=== PATIENT | male | born 1935 | race Caucasian/White ===

== ENCOUNTER 2019-06-18 00:29 | Inpatient (IN) | payer MEDICARE, OTHER ==
[2019-06-18] VITALS (85 sets, daily range): BP systolic 76–145; BP diastolic 30–116
[~2019-06-18] VITALS: Ht 160 cm; Wt 75.0 kg
[2019-06-18] MEDS ORDERED: DOPamine 1600MCG/ML D5W 250 ML IV SCH (00:47)
[2019-06-18] MEDS ORDERED: ENOXAPARIN SOD 30 MG/0.3 ML SYRINGE IV ONE (01:00)
[2019-06-18] MEDS ORDERED: ENOXAPARIN SOD 30 MG/0.3 ML SYRINGE SC ONE (01:00)
[2019-06-18] MEDS ORDERED: SODIUM CHLORIDE 0.9% 500 ML IV ONE (01:00)
[2019-06-18] MEDS ORDERED: ASPirin 325 MG TAB PO ONE (01:00)
[2019-06-18] MEDS ORDERED: ATROPINE SULF 1 MG/10ml SYR ONE (01:04)
[2019-06-18] MEDS ORDERED: SODIUM CHL 0.9% 50 ML ONE (01:05)
[2019-06-18] MEDS ORDERED: IOHEXOL 350 MG/ML 100ML IJ ONE (01:05)
[2019-06-18] MEDS ORDERED: fentaNYL CITRATE 100 MCG/2 ML VL ONE (01:05)
[2019-06-18] MEDS ORDERED: MIDAZOLAM HCL 1MG/1ML-2 ML VIAL ONE ×2 (01:05→01:58)
[2019-06-18] MEDS ORDERED: ANGIOMAX 250 MG VIAL IV ONE (01:05)
[2019-06-18] MEDS ORDERED: LIDOCAINE 2%HCL (LOCAL ANESTH.) INJ 20ML MDV ONE (01:05)
[2019-06-18 01:17] LABS: Basophils # (auto) 0.1 uL; Basophils % (auto) 0.9 % (0.0-2.0); Eosinophils # (auto) 0.1 uL; Eosinophils % (auto) 1.7 % (0.0-7.0); Hematocrit 35.8 % (41.0-53.0); Hemoglobin 12.1 g/dL (13.5-17.5); Lymphocytes # (auto) 3.1 uL; Lymphocytes % (auto) 38.9 % (10.0-50.0); Mean Corpuscular Hemoglobin 32.2 pg (28.0-32.0); Mean Corpuscular Hgb Conc. 33.8 g/dL (32.0-36.0); Mean Corpuscular Volume 95.2 fL (80.0-100.0); Monocytes # (auto) 0.3 uL; Monocytes % (auto) 3.6 % (0.0-12.0); Neutrophils # (auto) 4.4 uL; Neutrophils % (auto) 54.9 % (37.0-80.0); Nucleated Red Blood Cells % 0.1 %; Platelet Count (auto) 76 10^3/uL (140-450); Red Blood Cells 3.76 10^6/uL (4.5-5.90); Red Cell Distribution Width 14.1 % (11.8-14.3); White Blood Cell 7.9 10^3/uL (4.4-10.8)
[2019-06-18 01:31] LABS: INR 1.19 (0.9-1.15); Partial Thromboplastin Time 58.9 sec (23.64-32.05)
[2019-06-18 01:33] LABS: Albumin 3.1 g/dL (3.4-5.0); BUN/Creatinine Ratio 9.1; Calcium 7.9 mg/dL (8.5-10.1); Magnesium 2.8 mg/dL (1.6-2.6); Potassium 3.7 mmol/L (3.5-5.1)
[2019-06-18 01:38] LABS: Bilirubin, Total 0.3 mg/dL (0.2-1.0); Total Protein 5.7 g/dL (6.4-8.2)
[2019-06-18] MEDS ORDERED: MORPHINE SULF INJ 2 MG/ML SYRINGE 1ML IV PRN ×2 (01:45→02:30)
[2019-06-18] MEDS ORDERED: NITROGLYCERIN 0.4 MG SL TAB SL PRN ×2 (01:45→02:30)
[2019-06-18] MEDS ORDERED: TICAGRELOR 90 MG TAB ONE (02:15)
--- NOTE | 2019-06-18 02:35 | NUR ---
Arrival Note ICU pt S/P Cardiac Cath on Ventilator S/P CPR Received pt on mechanical ventilator, following Cardiac catheterization, on emergency operator and portable oxygen. Patient transferred to ICU bed, connected to ICU monitoring and oxygen. Catheter remains in right groin. Site assessed for any bleeding, redness or swelling. Site benign, Pedal pulses on affected leg assessed for positive tissue perfusion. Pt does not respond or open eyes to any stimuli. Full assessment done see interventions. OGT clamped and placement verified. Right 18g peripheral IV to the right FA. 20g peripheral IV to the left FA infusing dopamine/NS. IO to the right lower extremity in place. Left knee abrasion and left upper abrasion on the nose noted. Pictures taken. Pt bleeding from the mouth, no secretions suctioned from ET tube. Travis catheter in place draining bright blood tinged urine. Pt temperature 94.2 degrees. Started warming measures and placed mino hugger on patient. Will continue to monitor pt.
--- NOTE | 2019-06-18 02:50 | NUR ---
FAMILY AT BEDSIDE. ALL QUESTIONS AND CONCERNS ADDRESSED AT THIS TIME.
[2019-06-18] MEDS: MIDAZOLAM DRIP 50 mg/50mL 50 ML IV SCH ×3 (03:00→16:19)
[2019-06-18] MEDS ORDERED: ACETAMINOPHEN 325 MG TAB PO PRN (03:15)
[2019-06-18] MEDS ORDERED: ONDANSETRON HCL 4 MG/2 ML VIAL IV PRN (03:15)
--- NOTE | 2019-06-18 03:40 | NUR ---
PT TAKEN TO CT
[2019-06-18 03:41] LABS: Basophils # (auto) 0 uL; Basophils % (auto) 0.1 % (0.0-2.0); Eosinophils # (auto) 0.1 uL; Eosinophils % (auto) 0.3 % (0.0-7.0); Hematocrit 40.7 % (41.0-53.0); Hemoglobin 13.8 g/dL (13.5-17.5); Lymphocytes # (auto) 1.4 uL; Lymphocytes % (auto) 6.3 % (10.0-50.0); Mean Corpuscular Hemoglobin 32.1 pg (28.0-32.0); Mean Corpuscular Volume 94.5 fL (80.0-100.0); Monocytes # (auto) 0.5 uL; Monocytes % (auto) 2.3 % (0.0-12.0); Nucleated Red Blood Cells % 0.1 %; Platelet Count (auto) 141 10^3/uL (140-450)
--- NOTE | 2019-06-18 04:10 | NUR ---
PT BACK FROM CT
[2019-06-18] MEDS: SODIUM CHLOR 0.9% PF (SALINE LOCK) 10ML VIAL/SYR IV SCH ×3 (06:00→22:06)
--- NOTE | 2019-06-18 07:15 | NUR ---
REPORT RECEIVED FROM HEALTH INFORMATION ASSISTANT NURSE. PATIENT RESTING IN BED AT THIS TIME, INTUBATED AND SEDATED. RESPIRATIONS EVEN BUT LABORED. PATIENT HAS INCREASED RR 30'S INCREASED SEDATION PER PROTOCOL. BED IN LOW POSITION WILL CONTINUE TO MONITOR.
--- NOTE | 2019-06-18 07:30 | NUR ---
END OF SHIFT NOTE REPORT GIVEN TO DAY SHIFT RN TO ASSUME CARE.
--- NOTE | 2019-06-18 07:46 | NUR ---
SPOKE TO DR TIDWELL ABOUT NEW CONSULT. REVIEWED LAB AND H&P WITH MD WELL ABG RESULTS. PER MD INCREASED RR TO 22 AND ADMINISTERE 2 AMPS SODIUM BICARB IVP. REPEAT ABG IN 1 HOUR. ORDERS PLACED AND INFORMED RESPIRATORY THERAPIST.
[2019-06-18] MEDS ORDERED: SODIUM BICARBONATE 8.4 % INJ 50ML VIAL IV ONE (08:00)
[2019-06-18] MEDS: fentaNYL Drip 2500mCg/250mlNS 250 ML IV SCH (08:11)
--- NOTE | 2019-06-18 08:16 | NUR ---
Respiratory note: INCREASED RR TO [address] TIDWELL, DRAW ABG IN ONE HOUR. VENTILATOR SETTINGS ARE NOW: AC 22/500/+5 WILL CONTINUE TO MONITOR PATIENT.
--- NOTE | 2019-06-18 09:14 | NUR ---
SPOKE TO ABOUT CENTRAL LINE PLACEMENT CONSENTS SIGNED.
--- NOTE | 2019-06-18 09:35 | NUR ---
PER DR JOSÉ MIGUEL TREJO TO PLACE CENTRAL LINE. WILL PAGE DR CALDERON TO PLACE CENTRAL LINE.
--- NOTE | 2019-06-18 09:50 | NUR ---
Respiratory note: TITRATED PATIENT FI02 DOWN TO 50%. SPO2 IS MAINTAINING ABOVE 92%.
--- NOTE | 2019-06-18 09:50 | NUR ---
DR CALDERON AT BEDSIDE TO PLACE CENTRAL LINE. PATIENT TOLERATED WELL.
[2019-06-18] MEDS: ASPirin 81 mg TAB PO SCH (10:00)
[2019-06-18] MEDS: METOPROLOL SUCCINATE XL 50 MG TAB PO SCH (10:00)
--- NOTE | 2019-06-18 10:15 | NUR ---
TIRE DESIGN ENGINEER AT BEDSIDE.
--- NOTE | 2019-06-18 10:20 | NUR ---
PLACED FLEXY SEAL DUE TO PATIENTS DIARRHEA. DR VALDEZ AWARE. PATIENT TOLERATED WELL.
[2019-06-18] MEDS: PANTOPRAZOLE 40 MG/10 ML VIAL INJ IV SCH (11:10)
--- NOTE | 2019-06-18 12:43 | NUR ---
DR TIDWELL AT BEDSIDE TO ASSESS PATIENT AND DISCUSS PLAN OF CARE WITH FAMILY. MD INCREASED PEEP TO 8. INFORMED RESPIRATORY THERAPIST. ALL ORDERS PLACED IN CHART.
--- NOTE | 2019-06-18 12:50 | NUR ---
Respiratory note: DR. TIDWELL INCREASED THE PEEP ON THE VENTILATOR TO PEEP +8. PATIENT IS TOLERATING CHANGE WELL. VENT SETTINGS ARE NOW: AC 22/500/+8/50%. WILL CONTINUE TO MONITOR THE PATIENT.
[2019-06-18] MEDS ORDERED: CEFEPIME 1 GM in SODIUM CHL 0.9% 50 ML IV ONE (13:00)
--- NOTE | 2019-06-18 13:00 | NUR ---
TEMP APPLIED ICE PACKS AND TYLENOL AT ORDERED. PATIENTS TEMP 101.3 RECTAL. WILL CONTINUE TO MONITOR.
--- NOTE | 2019-06-18 13:55 | NUR ---
SPOKE TO DR TIDWELL TO INFORM OF LOW BLOOD PRESSURE. PER MD ADMINISTER LEVOPHED PER PROTOCOL. ALL ORDERS NOTED IN CHART.
[2019-06-18] MEDS: PHENYLEPHRINE INJ 20 MG in SODIUM CHL 0.9% 250 ML IV SCH ×2 (13:56→22:16)
[2019-06-18] MEDS ORDERED: CEFEPIME 0.5 GM in SODIUM CHL 0.9% 50 ML IV SCH ×2 (14:00→20:00)
--- NOTE | 2019-06-18 14:20 | NUR ---
PATIENT CONTINUES TO HAVE ELEVATED TEMP PLACED PATIENT ON COOLING BLANKET. WILL CONTINUE TO MONITOR.
[2019-06-18] MEDS: NOREPINEPHRINE 8 MG/250ML KIT 250 ML IV SCH (14:21)
[2019-06-18] MEDS: SODIUM CHLORIDE 0.9% 1,000 ML IV SCH (14:22)
[2019-06-18 15:21] LABS: INR 1.27 (0.9-1.15)
[2019-06-18 15:32] LABS: Lactic Acid w/Reflex 7.3 mmol/L (0.4-2.0)
--- NOTE | 2019-06-18 16:38 | NUR ---
DR VALDEZ AT BEDSIDE TO ASSESS PATIENT AND DISCUSS PLAN OF CARE WITH FAMILY. ALL ORDERS NOTED IN CHART. MD MADE AWARE OF PATIENT BLEEDING FROM FOFANA, ORALLY AND NGT COFFEE GROUND. PER MD ADMINISTER BRILINTA.
--- NOTE | 2019-06-18 17:30 | NUR ---
TOOK HOME PATIENTS LOWER DENTURES AND STATED THAT UPPER DENTURES WERE ALREADY AT HOME. SHE WAS ALSO SENT HOME WITH THE PATIENTS WEDDING RING THAT WAS A YELLOW GOLD WITH WHITE STONES.
[2019-06-18] MEDS: DOPamine 1600MCG/ML D5W 250 ML IV SCH ×2 (19:05→20:10)
--- NOTE | 2019-06-18 19:30 | NUR ---
Opening Shift Note Received pt on mechanical ventilator sedated on versed and fentanyl gtt. Right groin cardiac insertion site assessed for any bleeding, redness or swelling. Site benign, Pedal pulses on affected leg assessed for positive tissue perfusion. All pulses palpable. Pt does not respond or open eyes to any stimuli. Full assessment done see interventions. OGT connected to LIS, draining dark brown fluid. 20g peripheral IV to the left FA D/C'd . IO to the right lower extremity D/C'd. Right IJ TLC in place, all ports patent. See IV spreadsheet for details. Pt tolerated well. Left knee abrasion and left upper abrasion on the nose noted. Pt bleeding from the mouth, no secretions suctioned from ET tube. Travis catheter in place draining brown urine. Will continue to monitor pt.
--- NOTE | 2019-06-18 21:00 | NUR ---
TEMPERATURE PT TEMP 101.3 AT THIS TIME. COOLING MEASURES INITIATED.
[2019-06-18] MEDS ORDERED: ATORVASTATIN 20 MG TAB PO SCH (22:00)
[2019-06-18] MEDS ORDERED: CEFEPIME 1 GM in SODIUM CHL 0.9% 50 ML IV SCH ×4 (22:00)
--- NOTE | 2019-06-18 22:00 | NUR ---
PER JOSÉ MIGUEL BETTENCOURT TO GIVE BRILINTA IF PT SHOWS SIGNS OF BLEEDING. MED GIVEN. WILL MONITOR CLOSELY FOR ANY ACTIVE SIGNS OF BLEEDING.
[2019-06-18] MEDS: ATORVASTATIN 20 MG TAB PO SCH (22:06)
[2019-06-18] MEDS: TICAGRELOR 90 MG TAB GT SCH (22:06)
--- NOTE | 2019-06-18 23:42 | NUR ---
TEMP REASSESS TEMP 98.6. WILL CONTINUE TO MONITOR
[2019-06-19] VITALS (106 sets, daily range): BP systolic 94–128; BP diastolic 39–67
[2019-06-19 03:46] LABS: Basophils # (auto) 0 uL; Basophils % (auto) 0.2 % (0.0-2.0); Eosinophils # (auto) 0 uL; Hematocrit 38.8 % (41.0-53.0); Hemoglobin 13.7 g/dL (13.5-17.5); Lymphocytes # (auto) 0.9 uL; Lymphocytes % (auto) 3.2 % (10.0-50.0); Mean Corpuscular Hgb Conc. 35.3 g/dL (32.0-36.0); Mean Corpuscular Volume 90.6 fL (80.0-100.0); Monocytes # (auto) 1.9 uL; Monocytes % (auto) 6.9 % (0.0-12.0); Neutrophils # (auto) 24.7 uL; Neutrophils % (auto) 89.7 % (37.0-80.0); Platelet Count (auto) 148 10^3/uL (140-450); Red Blood Cells 4.29 10^6/uL (4.5-5.90); Red Cell Distribution Width 13.9 % (11.8-14.3); White Blood Cell 27.5 10^3/uL (4.4-10.8)
--- NOTE | 2019-06-19 04:00 | NUR ---
Patient bathe/linen change Patient given complete bath. Skin integrity assessed for any changes. Linens changed. Patient repositioned for comfort.
[2019-06-19 04:05] LABS: Albumin 2.8 g/dL (3.4-5.0); BUN/Creatinine Ratio 13.3; Calcium 7.3 mg/dL (8.5-10.1); Potassium 5.3 mmol/L (3.5-5.1)
[2019-06-19 04:07] LABS: Bilirubin, Total 0.5 mg/dL (0.2-1.0); Total Protein 5.9 g/dL (6.4-8.2)
[2019-06-19] MEDS: SODIUM CHLOR 0.9% PF (SALINE LOCK) 10ML VIAL/SYR IV SCH ×3 (06:00→22:28)
--- NOTE | 2019-06-19 06:10 | NUR ---
Respiratory note: RECEIVED PATIENT ON V12 V200 VENT ORALLY INTUBATED WITH AN 8.0 ETT SECURED VIA ALBERT AT THE 23CM MARKING AT THE LIP, AND MECHANICALLY VENTILATED WITH THE CHARTED SETTINGS. SPO2 97%, LUNG SOUNDS DIM T/O, NO SECRETIONS WHEN SUCTIONED. SKIN IS WARM/DRY TO THE TOUCH AND IS INTACT NEAR ALBERT SITE. THER IS AN OGT IN PLACE AND SECURED TO THE ETT, A TRIPLE LUMEN CENTRAL LINE IS PLACED IN THE RIGHT IJ, NO OTHER ADVANCED LINES PLACED. SLIGHT BRUISING ON BOTH FOREARMS, AND PITTING EDEMA NOTED ON BILATERAL LOWER EXTREMITIES. NO NEW AM CXR TO ASSESS,. PATIENT IS UNRESPONSIVE TO BOTH VERBAL/TACTILE STIMULI AND IS SEDATED ON VERSED AND FENTANYL DRIPS. HE IS RESTING COMFORTABLY AND TOLERATING VENT WELL, NO CHANGES MADE.
--- NOTE | 2019-06-19 06:33 | NUR ---
Respiratory note: FIO2 DECREASED TO 30% POST PO2 RESULTS FROM ABG. АЛЕКАСНДР FUNG MADE AWARE OF CHANGE.
--- NOTE | 2019-06-19 07:13 | NUR ---
REPORT GIVEN TO LINDSAY FOUNTAIN, TO ASSUME CARE
[2019-06-19] MEDS: MIDAZOLAM DRIP 50 mg/50mL 50 ML IV SCH ×3 (07:18→21:39)
--- NOTE | 2019-06-19 07:30 | NUR ---
OPEN Report received from Fany FOUNTAIN. Care initiated and initial assessment complete.
[2019-06-19] MEDS: SODIUM CHLORIDE 0.9% 1,000 ML IV SCH ×2 (07:39→21:57)
[2019-06-19] MEDS: PANTOPRAZOLE 40 MG/10 ML VIAL INJ IV SCH ×2 (10:00→11:00)
[2019-06-19] MEDS: TICAGRELOR 90 MG TAB GT SCH ×3 (10:00→22:30)
[2019-06-19] MEDS ORDERED: ASPirin 81 mg TAB PO SCH (10:00)
--- NOTE | 2019-06-19 10:00 | NUR ---
BEDSIDE Dr. Castaneda bedside. New orders received.
[2019-06-19] MEDS: ASPirin 81 mg TAB PO SCH (10:25)
[2019-06-19] MEDS: METOPROLOL SUCCINATE XL 50 MG TAB PO SCH (10:26)
[2019-06-19] MEDS: CEFEPIME 0.5 GM in SODIUM CHL 0.9% 50 ML IV SCH (11:00)
--- NOTE | 2019-06-19 12:00 | NUR ---
FAMILY BEDSIDE , Gladis, at the bedside. Updated on patients status and condition.
[2019-06-19] MEDS ORDERED: DEXTROSE (50%) 50ML SYRG IV PRN (13:15)
--- NOTE | 2019-06-19 13:20 | NUR ---
WOUND CARE BEDSIDE Wound care nurse assessing patient.
--- NOTE | 2019-06-19 13:30 | NUR ---
WOUND CARE NOTE: IN TO SEE PATIENT AT THIS TIME FOR SKIN INTEGRITY MONITORING. PATIENT WAS ADMITTED TO [facility] WITH DIAGNOSIS OF STEMI. CURRENT YUKI SCORE IS 12. PATIENT IS INTUBATED, SEDATED. PATIENT TURNED, SKIN ASSESSED. SKIN IS INTACT, NO OPEN OR DRAINING AREAS NOTED. BONY PROMINENCES ARE PINK, BLANCHABLE. APPLIED PREVENTATIVE OPTIFOAM GENTLE SACRAL DRESSING TO UPPER MEDIAL SACRUM AT THIS TIME. FAMILY AT BEDSIDE EDUCATED IN WOUND CARE AND PRESSURE REDISTRIBUTION. FAMILY VERBALIZED UNDERSTANDING. SKIN/WOUND CARE PLAN IMPLEMENTED. RECOMMEND: FREQUENT TURN SCHEDULE Q 2 HOURS, PRN CONDITION PERMITS, WITH PRESSURE REDISTRIBUTION USING PILLOWS/WEDGES, BID/PRN APPLICATION WITH MOISTURE BARRIER CREAM, OPTIFOAM GENTLE SACRAL DRESSING, SKIN/WOUND CARE PLAN, DIETARY CONSULT, CONTINUED MONITORING BY WOUND CARE TEAM.
--- NOTE | 2019-06-19 15:00 | NUR ---
FAMILY BEDSIDE , Gladis, at the bedside.
[2019-06-19] MEDS: DOPamine 1600MCG/ML D5W 250 ML IV SCH (17:12)
[2019-06-19] MEDS: fentaNYL Drip 2500mCg/250mlNS 250 ML IV SCH ×2 (17:14→22:00)
[2019-06-19] MEDS: NOREPINEPHRINE 8 MG/250ML KIT 250 ML IV SCH ×2 (17:14→17:17)
[2019-06-19] MEDS: ACCU-CHEK COMFORT CURVE STRIP VI SCH ×2 (17:50→23:45)
[2019-06-19] MEDS: InsuLIN REG 1unit/0.01ml Soln (100units/ml) SC SCH ×2 (17:54→23:59)
--- NOTE | 2019-06-19 19:35 | NUR ---
INITIAL CONTACT ASSUMED CARE OF PATIENT PATIENT APPEARS TO BE RESTING IN BED COMFORTABLY IN SEMI-FOWLERS POSITION, PATIENT IS INTUBATED AND SEDATED ON VERSED AND FENTANYL. SEE IV SPREADSHEET FOR MEDICATIONS AND TITRATION. NO FACIAL GRIMACE NOTED. NO MOVEMENT WITH STIMULATION. NOTED FOFANA CATHETER IN TACT AND DRAINING TO GRAVITY. TRIPLE LUMEN CATHETER INTACT WITH NO S/S OF PHLEBITIS OR INFILTRATION. VENTILATOR PLUGGED INTO RED OUTLET PER VAP PROTOCOL. AMBU BAG AT BEDSIDE. BED IN LOWEST LOCKED POSITION, SIDE RAILS UP TIMES TWO, PATIENT IS IN FULL VIEW OF NURSES STATION. SAFETY MAINTAINED, WILL CONTINUE TO MONITOR.
[2019-06-19] MEDS: SODIUM ZIRCONIUM CYCL 10 GM PAK PO ONE (19:45)
[2019-06-19] MEDS: ATORVASTATIN 20 MG TAB PO SCH (22:28)
[2019-06-20] VITALS (103 sets, daily range): BP systolic 69–133; BP diastolic 41–70
[2019-06-20] MEDS: MIDAZOLAM DRIP 50 mg/50mL 50 ML IV SCH ×2 (01:16→06:03)
--- NOTE | 2019-06-20 04:00 | NUR ---
Patient bathe/linen change Patient given complete bath. Skin integrity assessed for any changes. Linens changed. Patient repositioned for comfort. Mouth care given, tubing changed, Gown change, suction as necessary. Patient tolerated well.
[2019-06-20] MEDS: SODIUM ZIRCONIUM CYCL 10 GM PAK PO ONE (05:05)
[2019-06-20] MEDS ORDERED: DOBUTamine 1000MCG/ML 0 ML IV ONE (05:09)
[2019-06-20 05:13] LABS: Basophils # (auto) 0 uL; Basophils % (auto) 0.2 % (0.0-2.0); Eosinophils # (auto) 0 uL; Eosinophils % (auto) 0.3 % (0.0-7.0); Hematocrit 31.8 % (41.0-53.0); Lymphocytes # (auto) 0.8 uL; Lymphocytes % (auto) 5.3 % (10.0-50.0); Mean Corpuscular Hemoglobin 32.2 pg (28.0-32.0); Mean Corpuscular Hgb Conc. 34.5 g/dL (32.0-36.0); Mean Corpuscular Volume 93.3 fL (80.0-100.0); Monocytes # (auto) 0.9 uL; Monocytes % (auto) 5.9 % (0.0-12.0); Neutrophils # (auto) 13.3 uL; Neutrophils % (auto) 88.3 % (37.0-80.0); Platelet Count (auto) 115 10^3/uL (140-450); Red Blood Cells 3.41 10^6/uL (4.5-5.90); Red Cell Distribution Width 14.2 % (11.8-14.3)
[2019-06-20 05:26] LABS: BUN/Creatinine Ratio 18.8; Calcium 7.1 mg/dL (8.5-10.1); Potassium 3.9 mmol/L (3.5-5.1)
[2019-06-20] MEDS: InsuLIN REG 1unit/0.01ml Soln (100units/ml) SC SCH ×3 (06:01→18:00)
[2019-06-20] MEDS: SODIUM CHLOR 0.9% PF (SALINE LOCK) 10ML VIAL/SYR IV SCH ×3 (06:01→22:11)
[2019-06-20] MEDS: ACCU-CHEK COMFORT CURVE STRIP VI SCH ×3 (06:02→18:19)
[2019-06-20] MEDS: fentaNYL Drip 2500mCg/250mlNS 250 ML IV SCH (06:02)
[2019-06-20] MEDS: DOPamine 1600MCG/ML D5W 250 ML IV SCH (06:06)
--- NOTE | 2019-06-20 07:30 | NUR ---
OPENING NOTE Report received from Adenike FOUNTAIN, care assumed. Patient is intubated on ventilator, tolerating well at this time. Physical assessment performed. Patient under sedation of Fentanyl and Versed. Afebrile. Pulses palpable bilaterally. Vitals stable on Levophed and Dopamine gtt. Flexiseal and Travis catheter patent and present. See skin assessment. Bed locked in lowest position, alarms in place. Will continue to monitor.
[2019-06-20] MEDS: PHENYLEPHRINE INJ 20 MG in SODIUM CHL 0.9% 250 ML IV SCH ×2 (07:36→14:14)
[2019-06-20] MEDS: CEFEPIME 0.5 GM in SODIUM CHL 0.9% 50 ML IV SCH (09:34)
[2019-06-20] MEDS: ASPirin 81 mg TAB PO SCH (09:34)
[2019-06-20] MEDS: PANTOPRAZOLE 40 MG/10 ML VIAL INJ IV SCH (09:34)
[2019-06-20] MEDS: METOPROLOL SUCCINATE XL 50 MG TAB PO SCH (09:35)
[2019-06-20] MEDS: TICAGRELOR 90 MG TAB GT SCH ×2 (09:46→22:11)
--- NOTE | 2019-06-20 09:50 | NUR ---
MD VISIT at beside rounding on patient. MD reviewing chart. MD wishes to titrate off sedation and attempt cpap trial once cardiology and nephrology clears patient.
--- NOTE | 2019-06-20 11:00 | NUR ---
Family updated on pt status Family of GREGG LOPEZ updated on patient's status and condition. All questions and concerns addressed. Linnette verbalized understanding.
--- NOTE | 2019-06-20 11:32 | NUR ---
NUTRITION CONSULT/ASSESSMENT NOTES Please refer to link notes of nutrition screen form filed under the intervention section of the plan of care for further details. Est. Needs: 1500 kcal to 1850 kcal (20-25 kcal/kgBW), 59 gms to 74 gms pro (0.8-1.0 gms/kgBW). Will continue to monitor pertinent labs and reassess nutrient need prn Thank you for this consult. Addendum: 06/20/19 at [address] Amended: Links added.
[2019-06-20] MEDS: SODIUM CHLORIDE 0.9% 1,000 ML IV SCH ×2 (12:15→20:00)
--- NOTE | 2019-06-20 12:21 | NUR ---
MD VISIT at bedside. MD notified of labs, urine output, and current gtts. No new orders received. MD prefers to titrate off levophed gtt before dopamine.
--- NOTE | 2019-06-20 12:55 | NUR ---
NEPHROLOGY CONSULT Paged and notified him of consult placed. MD will round on patient this afternoon.
--- NOTE | 2019-06-20 14:00 | NUR ---
TEMPERATURE 99.7 rectal temp, cooling measures initiated. Will continue to monitor.
--- NOTE | 2019-06-20 14:33 | NUR ---
MD VISIT at bedside assessing patient. MD reviewing chart. Orders placed.
[2019-06-20] MEDS ORDERED: BUMETANIDE 1mg/4ml VIAL (0.25mg/ml) IV ONE (14:45)
--- NOTE | 2019-06-20 14:46 | NUR ---
MD VISIT at bedside speaking with family regarding plan of care. MD answering all questions and concerns Addendum: 06/20/19 at 1447 by Honey Cruz RN WRONG PATIENT
[2019-06-20 15:31] LABS: Creatinine, Urine 128 mg/dL (30.0-125.0); Sodium Urine 12 mmol/L (40-220)
--- NOTE | 2019-06-20 16:44 | NUR ---
IV CENTRAL LINE DRESSING CHANGE PERFORMED WITH STERILE TECHNIQUE.
--- NOTE | 2019-06-20 17:39 | NUR ---
CARES Complete linen change performed. Skin intact, new stacia pad placed. Patient tolerated activity well. No distress noted, vitals stable. at bedside. All extremities off loaded on pillows. Will continue to monitor.
[2019-06-20] MEDS: CALCIUM ACETATE 667 MG CAP NG SCH (18:24)
--- NOTE | 2019-06-20 19:28 | NUR ---
REPORT Report given to Fany FOUNTAIN, care endorsed.
--- NOTE | 2019-06-20 19:30 | NUR ---
OPEN Report received from day shift RN. Care initiated and initial assessment complete. VSS at this time. Bed locked in lowest position. All alarms on and audible. Pt in full view of RN.
--- NOTE | 2019-06-20 22:00 | NUR ---
LEVOPHED GTT RESTARTED AT THIS TIME. B/P 79/42 WILL CONTINUE TO MONITOR AND TITRATE GTT TO SUSTAIN GOOD HEMODYNAMICS
[2019-06-20] MEDS: ATORVASTATIN 20 MG TAB PO SCH (22:11)
[2019-06-21] VITALS (103 sets, daily range): BP systolic 97–166; BP diastolic 47–83
[2019-06-21] MEDS: PHENYLEPHRINE INJ 20 MG in SODIUM CHL 0.9% 250 ML IV SCH ×3 (00:16→16:56)
[2019-06-21] MEDS: DOPamine 1600MCG/ML D5W 250 ML IV SCH ×2 (01:00→13:56)
[2019-06-21 04:32] LABS: Basophils # (auto) 0 uL; Basophils % (auto) 0.4 % (0.0-2.0); Eosinophils # (auto) 0.1 uL; Eosinophils % (auto) 0.6 % (0.0-7.0); Hematocrit 28.5 % (41.0-53.0); Hemoglobin 9.9 g/dL (13.5-17.5); Lymphocytes # (auto) 0.6 uL; Lymphocytes % (auto) 5.2 % (10.0-50.0); Mean Corpuscular Hgb Conc. 34.9 g/dL (32.0-36.0); Mean Corpuscular Volume 91.8 fL (80.0-100.0); Monocytes # (auto) 0.7 uL; Monocytes % (auto) 6.1 % (0.0-12.0); Neutrophils # (auto) 10.1 uL; Neutrophils % (auto) 87.7 % (37.0-80.0); Platelet Count (auto) 94 10^3/uL (140-450); White Blood Cell 11.5 10^3/uL (4.4-10.8)
[2019-06-21 04:57] LABS: Potassium 3.4 mmol/L (3.5-5.1)
[2019-06-21 05:05] LABS: Albumin 2.2 g/dL (3.4-5.0); BUN/Creatinine Ratio 21.7; Bilirubin, Total 0.7 mg/dL (0.2-1.0); Calcium 6.8 mg/dL (8.5-10.1); Total Protein 4.9 g/dL (6.4-8.2)
[2019-06-21] MEDS: fentaNYL Drip 2500mCg/250mlNS 250 ML IV SCH (05:57)
[2019-06-21] MEDS: InsuLIN REG 1unit/0.01ml Soln (100units/ml) SC SCH ×4 (05:58→17:33)
[2019-06-21] MEDS: SODIUM CHLOR 0.9% PF (SALINE LOCK) 10ML VIAL/SYR IV SCH ×3 (06:00→22:00)
[2019-06-21] MEDS: ACCU-CHEK COMFORT CURVE STRIP VI SCH ×4 (06:00→17:33)
--- NOTE | 2019-06-21 06:23 | NUR ---
Respiratory note: RECEIVED PATIENT ON V12 V200 VENT ORALLY INTUBATED WITH AN 8.0 ETT SECURED VIA ALEBRT AT THE 23CM MARKING AT THE LIP, AND MECHANICALLY VENTILATED WITH THE ABOVE CHARTED SETTINGS. SPO2 98%, LUNG SOUNDS DIM T/O, NO SECRETIONS WHEN SUCTIONED. SKIN IS WARM/DRY TO THE TOUCH AND IS INTACT NEAR ALBERT SITE. THERE IS AN OGT IN PLACE AND SECURED TO THE ETT, A TRIPLE LUMEN CENTRAL LINE IS PLACED IN THE RIGHT IJ, NO OTHER ADVANCED LINES PLACED. BRUISING NOTED ON BOTH FOREARMS, AND PITTING EDEMA NOTED ON BILATERAL LOWER EXTREMITIES. LEG SEQUENTIALS ARE IN PLACE AND OPERATIONAL. NO NEW AM CXR TO ASSESS,. PATIENT IS UNRESPONSIVE TO BOTH VERBAL/TACTILE STIMULI AND IS SEDATED ON FENTANYL DRIP. HE IS RESTING COMFORTABLY AND TOLERATING VENT WELL, NO CHANGES MADE. VENT PLUGGED INTO RED OUTLET AND ALL ALARMS ARE SET AND AUDIBLE. WILL CONTINUE TO ASSESS PATIENT WELL VENTILATOR FUNCTION.
--- NOTE | 2019-06-21 07:35 | NUR ---
END OF SHIFT NOTE REPORT GIVEN AND CARE ENDORSED TO FIRTZ FOUNTAIN.
[2019-06-21] MEDS: CALCIUM ACETATE 667 MG CAP NG SCH ×3 (08:00→17:33)
[2019-06-21] MEDS: SODIUM CHLORIDE 0.9% 1,000 ML IV SCH (08:27)
[2019-06-21] MEDS: TICAGRELOR 90 MG TAB GT SCH ×2 (10:00→22:39)
[2019-06-21] MEDS: CEFEPIME 0.5 GM in SODIUM CHL 0.9% 50 ML IV SCH (10:00)
[2019-06-21] MEDS: METOPROLOL SUCCINATE XL 50 MG TAB PO SCH (10:00)
--- NOTE | 2019-06-21 10:00 | NUR ---
DR. MYERS HERE TO SEE PATIENT. SEE MD NOTES AND EMR FOR ANY NEW ORDERS.
[2019-06-21] MEDS ORDERED: POTASSIUM EFFERVESENT TAB 25 MEQ ONE (10:21)
[2019-06-21] MEDS: PANTOPRAZOLE 40 MG/10 ML VIAL INJ IV SCH (10:24)
[2019-06-21] MEDS: BUMETANIDE 1mg/4ml VIAL (0.25mg/ml) IV SCH (10:25)
[2019-06-21] MEDS: ASPirin 81 mg TAB PO SCH (10:25)
[2019-06-21] MEDS ORDERED: POTASSIUM EFFERVESENT TAB 25 MEQ NG ONE (10:30)
--- NOTE | 2019-06-21 11:30 | NUR ---
DR. SOTO HERE TO SEE PATIENT. SEE MD NOTES AND EMR FOR ANY NEW ORDERS.
--- NOTE | 2019-06-21 11:40 | NUR ---
Respiratory note: PEEP DECREASED TO 7 AT THIS TIME PER DR[address] MCCALL'S BEDSIDE ORDER. АЛЕКСАНДР HU MADE AWARE OF CHANGE.
[2019-06-21] MEDS: NOREPINEPHRINE 8 MG/250ML KIT 250 ML IV SCH (13:06)
--- NOTE | 2019-06-21 14:20 | NUR ---
DR. VALDEZ HERE TO SEE PATIENT. SEE MD NOTES AND EMR FOR ANY NEW ORDERS.
--- NOTE | 2019-06-21 16:46 | NUR ---
Assessment Pt is an 83 yr old male who was on a vent. Pts , Linnette, was in the room and able to answer questions. Linnette is pts emergency contact and can be reached at [phone] or [phone]. Prior to admit, pt lived alone with his . Pt was ambulatory and independent with ADLs. Pt would assist his with cooking and cleaning. Linnette stated that the family has good social support through their yazidi and that they have been very helpful for her during this difficult time. Pt stated that her is showing big signs of dementia including memory loss and poor judgement. Pt has refused to see a doctor for 4 years despite wifes continuous prompts. Pts Primary is Dr. Thorpe. Pt does not have an AD on file, pts stated that they will create one once her husbands condition improves. SW will reassess for d/c plan closer to d/c Addendum: 06/21/19 at 1646 by NATHANIEL NEWMAN Amended: Links added.
--- NOTE | 2019-06-21 19:05 | NUR ---
open received report from day rn, assumed care of male pt. pt is intubated and connected to icu monitors at this time. vs are stable. pt has a RIJ triple lumen flushed and patent, no ss of redness or swelling at RIJ site, dressing is clean and dry.dopamine is running at 5mcg/kg/min and ns running at 70ml/hr. pt rr are equal and unlabored. pt does not respond to stimuli, pt has no gag or cough reflex.pt has a holly hanging below the bladder draining urine to gravity. pt also has a rectal prob in place to closely monitor pts core temp. pt has a Flexseal in place. pillows are in place to offload pressure of jesus prominences for safety and comfort. bed is in lowest locked position, hob 45*, pt is in full view of rn station, will continue to care for and monitor.
--- NOTE | 2019-06-21 21:36 | NUR ---
no ss of distress no ss of distress noted at this time, vs are stable, will continue to monitor and care for.
[2019-06-21] MEDS: ATORVASTATIN 20 MG TAB PO SCH (22:36)
[2019-06-21] MEDS ORDERED: FUROSEMIDE 20 MG/2 ML VIAL ONE (22:39)
--- NOTE | 2019-06-21 23:18 | NUR ---
no ss of distress no ss of distress noted at this time, vs are stable,pt tolerates care and prescribed medications, will continue to monitor and care for.
[2019-06-22] VITALS (63 sets, daily range): BP systolic 123–171; BP diastolic 50–97
--- NOTE | 2019-06-22 00:05 | NUR ---
bs insulin pt bs required insulin, amount given was determined by protocol, see documentation.
--- NOTE | 2019-06-22 01:15 | NUR ---
hygiene bed bath and lizandro change provided. pt tolerated care. vs are stable no ss of distress noted at this time.
[2019-06-22] MEDS: PHENYLEPHRINE INJ 20 MG in SODIUM CHL 0.9% 250 ML IV SCH ×3 (01:16→17:56)
--- NOTE | 2019-06-22 01:45 | NUR ---
suction canisters & tubing changed
[2019-06-22] MEDS: MIDAZOLAM DRIP 50 mg/50mL 50 ML IV SCH (02:50)
--- NOTE | 2019-06-22 03:00 | NUR ---
Optifoam applied optifoam changed and applied to sacrum as a preventive measure. Addendum: 06/22/19 at 0348 by ARNOLD CARTER RN RN skin is intact and blanches. optifoam placed on jesus prominence.
[2019-06-22 05:06] LABS: Potassium 3.6 mmol/L (3.5-5.1)
--- NOTE | 2019-06-22 05:10 | NUR ---
pt is stable pt is still intubated and vs stable, no ss of distress at this time. pt tolerates oral care and turns Q2. will continue to monitor.
[2019-06-22 05:11] LABS: Albumin 2.3 g/dL (3.4-5.0); BUN/Creatinine Ratio 24.9; Calcium 7.9 mg/dL (8.5-10.1)
[2019-06-22 05:13] LABS: Bilirubin, Total 1.1 mg/dL (0.2-1.0); Total Protein 6.1 g/dL (6.4-8.2)
[2019-06-22] MEDS: DOPamine 1600MCG/ML D5W 250 ML IV SCH ×2 (05:24→23:15)
[2019-06-22] MEDS: fentaNYL Drip 2500mCg/250mlNS 250 ML IV SCH (05:57)
[2019-06-22] MEDS: SODIUM CHLOR 0.9% PF (SALINE LOCK) 10ML VIAL/SYR IV SCH ×3 (06:00→22:00)
[2019-06-22] MEDS: ACCU-CHEK COMFORT CURVE STRIP VI SCH ×4 (06:00→18:00)
[2019-06-22] MEDS: InsuLIN REG 1unit/0.01ml Soln (100units/ml) SC SCH ×4 (06:00→18:00)
--- NOTE | 2019-06-22 06:12 | NUR ---
Respiratory note: RECEIVED PATIENT ON V12 V200 VENT ORALLY INTUBATED WITH AN 8.0 ETT SECURED VIA ALBERT AT THE 23CM MARKING AT THE LIP, AND MECHANICALLY VENTILATED WITH THE CHARTED SETTINGS. SPO2 99%, LUNG SOUNDS DIM T/O, NO SECRETIONS WHEN SUCTIONED. SKIN IS WARM/DRY TO THE TOUCH AND IS INTACT NEAR ALBERT SITE. THERE IS AN OGT IN PLACE AND SECURED TO THE ETT, A TRIPLE LUMEN CENTRAL LINE IS PLACED IN THE RIGHT IJ, NO OTHER ADVANCED LINES PLACED. BRUISING NOTED ON BOTH FOREARMS, AND PITTING EDEMA NOTED ON BILATERAL LOWER EXTREMITIES. LEG SEQUENTIALS ARE IN PLACE AND OPERATIONAL. NO NEW AM CXR TO ASSESS,. PATIENT IS UNRESPONSIVE TO BOTH VERBAL/TACTILE STIMULI AND IS SEDATED ON FENTANYL DRIP. HE IS RESTING COMFORTABLY AND TOLERATING VENT WELL, NO CHANGES MADE. VENT PLUGGED INTO RED OUTLET AND ALL ALARMS ARE SET AND AUDIBLE. WILL CONTINUE TO ASSESS PATIENT WELL VENTILATOR FUNCTION.
[2019-06-22] MEDS: CALCIUM ACETATE 667 MG CAP NG SCH ×3 (08:00→18:00)
--- NOTE | 2019-06-22 08:00 | NUR ---
Neuro No cough/gag reflex noted, no extremity withdrawal to pain noted. Pupils 2mm and appear fixed.
--- NOTE | 2019-06-22 08:45 | NUR ---
Patient's phones - updated on patient condition - requesting neurology consult.
--- NOTE | 2019-06-22 09:05 | NUR ---
Dr. Castaneda contacted re: need for neurology consult et CT - orders received.
--- NOTE | 2019-06-22 09:45 | NUR ---
visits et examines patient - orders received.
[2019-06-22] MEDS: ASPirin 81 mg TAB PO SCH (10:00)
--- NOTE | 2019-06-22 10:40 | NUR ---
visits et examines patient - no new orders received.
[2019-06-22] MEDS: PANTOPRAZOLE 40 MG/10 ML VIAL INJ IV SCH (10:50)
[2019-06-22] MEDS: BUMETANIDE 1mg/4ml VIAL (0.25mg/ml) IV SCH (10:50)
[2019-06-22] MEDS: METOPROLOL SUCCINATE XL 50 MG TAB PO SCH (10:51)
--- NOTE | 2019-06-22 11:01 | NUR ---
Patient's son at bedside - updated on new orders including pending EEG and CT Head - verbalized understanding.
[2019-06-22] MEDS: CEFEPIME 1 GM in SODIUM CHL 0.9% 50 ML IV SCH (11:04)
--- NOTE | 2019-06-22 11:36 | NUR ---
No sedation in place. Addendum: 06/22/19 at 1138 by Arlene Reynolds RN Amended: Links added.
--- NOTE | 2019-06-22 12:55 | NUR ---
ELECTROENCEPHALOGRAM COMPLETED AT BEDSIDE. RN DEVAUGHN NOTIFIED.
--- NOTE | 2019-06-22 13:29 | NUR ---
RT Transport Note: Patient transported to CT with АЛЕКСАНДР GALLEGOS. Patient transported to and from procedure on ventilator with previous ordered settings. Patient on media monitor with alarms set and audible, ambu-bag/mask connected to 02 tank. Patient returned to room with no adverse reaction noted. Transport completed without incident.
[2019-06-22] MEDS: NOREPINEPHRINE 8 MG/250ML KIT 250 ML IV SCH (13:56)
[2019-06-22] MEDS: TICAGRELOR 90 MG TAB GT SCH ×2 (14:05→23:13)
--- NOTE | 2019-06-22 14:40 | NUR ---
Called and spoke to Dr. Rader aware of results from CT head done earlier today with no new orders received.
--- NOTE | 2019-06-22 16:00 | NUR ---
Patient's family at bedside - questioning results of CT Head - commercial loan underwriter explained to them that results were abnormal and would be given by MD tomorrow - verbalized understanding.
--- NOTE | 2019-06-22 16:30 | NUR ---
Temp 99.9 rectally - ice packs applied to bilat groin and axilla et posterior neck. Fan placed on patient and room temp cooled - will monitor temp.
--- NOTE | 2019-06-22 17:00 | NUR ---
visits and examines patient - no new orders received.
--- NOTE | 2019-06-22 19:20 | NUR ---
open received report from day rn, assumed care of male pt. pt is intubated and connected to icu monitors at this time. vs are stable. no ss of distress noted at this time pt has a RIJ triple lumen flushed and patent, no ss of redness or swelling at RIJ site, dressing is clean and dry.dopamine is running at 5mcg/kg/min and ns running at 70ml/hr. pt rr are equal and unlabored. pt does not respond to stimuli, pt has no gag or cough reflex.pt has a holly hanging below the bladder draining urine to gravity. pt also has a rectal prob in place to closely monitor pts core temp. pt has a Flexseal in place. optifoam on sacrum. pillows are in place to offload pressure of jesus prominences for safety and comfort. bed is in lowest locked position, hob 45*, pt is in full view of rn station, will continue to care for and monitor.
[2019-06-22] MEDS: SODIUM CHLORIDE 0.9% 1,000 ML IV SCH ×2 (21:27)
--- NOTE | 2019-06-22 23:00 | NUR ---
no ss of distress no ss of distress noted at this time, vs are stable, will continue to monitor and care for.
[2019-06-22] MEDS: ATORVASTATIN 20 MG TAB PO SCH (23:13)
[2019-06-23] VITALS (42 sets, daily range): BP systolic 119–152; BP diastolic 62–85
[2019-06-23] MEDS: ACCU-CHEK COMFORT CURVE STRIP VI SCH ×3 (00:14→11:44)
--- NOTE | 2019-06-23 00:15 | NUR ---
accu check pts accu check does not require insulin.
[2019-06-23] MEDS: PHENYLEPHRINE INJ 20 MG in SODIUM CHL 0.9% 250 ML IV SCH (02:16)
[2019-06-23] MEDS: MIDAZOLAM DRIP 50 mg/50mL 50 ML IV SCH (02:50)
--- NOTE | 2019-06-23 03:10 | NUR ---
hygiene partial bed bath and partial lziandro change provided. pt tolerated care. vs are stable no ss of distress noted at this time.
[2019-06-23 04:14] LABS: Potassium 3.3 mmol/L (3.5-5.1)
[2019-06-23 04:20] LABS: Albumin 2.2 g/dL (3.4-5.0); BUN/Creatinine Ratio 31.1; Total Protein 6.1 g/dL (6.4-8.2)
[2019-06-23] MEDS: InsuLIN REG 1unit/0.01ml Soln (100units/ml) SC SCH ×3 (06:00→11:44)
[2019-06-23] MEDS: SODIUM CHLOR 0.9% PF (SALINE LOCK) 10ML VIAL/SYR IV SCH (06:18)
--- NOTE | 2019-06-23 07:44 | NUR ---
Assumed care of patient. Patient is not on any sedation and orally intubated. Patient is connected to all monitors. Vital signs are stable. No s/s of distress noted. Patient has a negative gag reflex with oral suctioned. Pupils are +2 and sluggish to reactive. Patient does not follow commands. Patient has an OGT, placement verified and clamped. All IV's are patent and flushed with NS, see IV spreadsheet for locations. No s/s of redness or swellin noted. Optifoam noted to sacrum as a preventative measure. Pillows applied under jesus prominence to offload pressure for patient safety and comfort. Travis hanging below bladder, patent draining sejal color urine to gravity. Flexiseal tube noted. No indication of pain observed. Bed in lowest locked positioned, HOB at 30 degrees, side rails up X2. Safety maintained, will continue to monitor.
--- NOTE | 2019-06-23 08:01 | NUR ---
Family at bedside.
[2019-06-23] MEDS: PANTOPRAZOLE 40 MG/10 ML VIAL INJ IV SCH (09:14)
[2019-06-23] MEDS: TICAGRELOR 90 MG TAB GT SCH (09:14)
[2019-06-23] MEDS: CALCIUM ACETATE 667 MG CAP NG SCH (09:14)
[2019-06-23] MEDS: BUMETANIDE 1mg/4ml VIAL (0.25mg/ml) IV SCH (09:14)
[2019-06-23] MEDS: METOPROLOL SUCCINATE XL 50 MG TAB PO SCH (09:15)
[2019-06-23] MEDS: ASPirin 81 mg TAB PO SCH (09:15)
[2019-06-23] MEDS: SODIUM CHLORIDE 0.9% 1,000 ML IV SCH (09:20)
[2019-06-23] MEDS: CEFEPIME 1 GM in SODIUM CHL 0.9% 50 ML IV SCH (09:24)
--- NOTE | 2019-06-23 10:45 | NUR ---
RIJTL dressing changed using sterile technique per hospital protocol. Patient tolerated with no s/s of distress noted. Safety maintained, will continue to monitor.
--- NOTE | 2019-06-23 11:00 | NUR ---
Complete bath given. Linens and gown changed. Oral care and suctioned provided. Patient turned and repositioned. No s/s of distress noted.
[2019-06-23] MEDS ORDERED: POTASSIUM EFFERVESENT TAB 25 MEQ NG ONE (11:30)
--- NOTE | 2019-06-23 11:42 | NUR ---
Nutrition Follow-up Notes Wt.: 75.0 kg today. Pt's room curtain's closed, RN at bedside when rounded earlier. Pt remains intubated, non-sedated, currently NPO, no order for alternate nutrition support yet at this time. Noted pt's for active Neurology consult. Est. Needs: 1500 kcal to 1850 kcal (20-25 kcal/kgBW), 59 gms to 74 gms pro (0.8-1.0 gms/kgBW). Will continue to monitor pertinent labs and reassess nutrient need prn Labs: Gluc 128 H, Na 147 H, K 3.3 L, Cl 118 H, BUN 47 H, Cr 1.51 H, Ca 8.0 L, AST 89 H, ALP 132 H, Tpro 6.1 L, Alb 2.2 L Skin: Christopher scale 12, high risk, pt's left nose, knee abrasion per bindery technician. GI: Pt had 1 BM 06/21/19 per bindery technician. PES: Increased nutrient needs r/t acute/chronic medical condition aeb intubated, sedated, mod hypoalbuminemia,NPO. Altered nutrition related lab values r/t current/chronic medical condition aeb hyperglycemia, hyperchloremia, elev. renal labs, LFTs, hypocalcemia and mod hypoalbuminemia Will continue to monitor NPO status, skin status, pertinent labs and weight trend. F/u in 2 to 3 days. Rec.:1.) If still NPO, consider alternate nutrition/EN support preferred with formula choice of Jevity 1.2 Jamil @ 60 ml/hr goal rate as tolerated if medically appropriate. 2.) If Albumin continues trending down with improved renal labs, consider Prostat 1 pkt BID. 3.) Consider daily MVI with minerals and Asc acid 500 mgs BID prn 4.) Advance gradually to oral diet when medically appropriate. 5.) Refer to RD for further nutrition educ. and weight monitoring upon discharge. 6.) Continue current plan of care.
--- NOTE | 2019-06-23 13:22 | NUR ---
Dr. Castaneda at bedside discussing DNR status with the patients family members. Patients family agreed to terminal wean the patient. DNR status sheet signed by Dr. Castaneda. RT notified.
--- NOTE | 2019-06-23 13:50 | NUR ---
Dr. Castaneda and Dr. Tenorio spoke with family regarding wishes to terminally wean patient. Family understands all aspects of weaning and understands that the outcome is . All questions and concerns addressed by Providers and by nursing. Pastoral care offered. Family at bedside.
[2019-06-23] MEDS ORDERED: LORazepam 2MG/ML-1ML VIAL ONE (14:04)
[2019-06-23] MEDS ORDERED: MORPHINE SULFATE 4 MG/ML SYR/VIAL IV PRN (14:15)
[2019-06-23] MEDS: LORazepam 2MG/ML-1ML VIAL IV PRN ×2 (14:20→15:14)
--- NOTE | 2019-06-23 15:51 | NUR ---
[facility] called per hospital protocol.
--- NOTE | 2019-06-23 16:00 | NUR ---
TOD 1600 Patient pronounced by JUJU Siegel
--- NOTE | 2019-06-23 16:01 | NUR ---
supervisor labor gang updated regarding TOD.
--- NOTE | 2019-06-23 16:02 | NUR ---
[facility] updated regarding TOD.
--- NOTE | 2019-06-23 16:05 | NUR ---
Dr. Castaneda updated regarding TOD.
--- NOTE | 2019-06-23 16:17 | NUR ---
[employer] called regarding TOD, awaiting call back.
--- NOTE | 2019-06-23 21:16 | NUR ---
CONTROL CLERK HEAD RELEASED PT SPOKE WITH TAHMINA PELAEZ FROM THE CORONERS OFFICE. AFTER QUESTIONS WERE ANSWERED REGARDING THE PT SHE DETEMINED THAT IT IS NOT A CORONERS CASE. SHE STATED "THIS IS NOT A CORONERS CASE".
--- NOTE | 2019-06-23 22:49 | NUR ---
POST MORTEM CARE PROVIDED POST [facility] CARE PROVIDED [facility] OF THE [facility] IS THE HOME THAT THE PT FAMILY CHOSE. LOCATED [id number] [id number] . HOME WILL BE CALLED AND NOTIFIED. FAMILY WILL BE NOTIFIED WHEN PT IS OFF THE HOSPITAL PROPERTY.
--- NOTE | 2019-06-23 22:55 | NUR ---
CONTACTED HOME SPOKE WITH NIRALI, ALL QUESTIONS ANSWERED AND READ BACK CONFIRMED. NIRALI STATED "ONE OF OUR TECHNICIANS WILL CALL WITH AN ETA SHORTLY."
--- NOTE | 2019-06-23 23:09 | NUR ---
CONTACTED PTS INFORMED PT THAT THE PT BE TRANSFERRED TO THE HOME.
--- NOTE | 2019-06-23 23:51 | NUR ---
PT OFF THE UNIT
== END 2019-06-24 01:00 | disposition expired | DRG 853 ==
LOC: EDBD 00:29 → ER 00:32 → CATH 00:47 → ICU WEST 02:30
PROVIDERS: ADMIT Internal Medicine Cardiovascular Disease; ATTEND Internal Medicine Cardiovascular Disease
PROC: 027034Z Dilation of Coronary Artery, One Artery with Drug-eluting Intraluminal Device, Percutaneous Approach (ICD-10-PCS; principal; 2019-06-18)
PROC: 4A023N7 Measurement of Cardiac Sampling and Pressure, Left Heart, Percutaneous Approach (ICD-10-PCS; 2019-06-18)
PROC: B2111ZZ Fluoroscopy of Multiple Coronary Arteries using Low Osmolar Contrast (ICD-10-PCS; 2019-06-18)
PROC: B2151ZZ Fluoroscopy of Left Heart using Low Osmolar Contrast (ICD-10-PCS; 2019-06-18)
PROC: 0BH17EZ Insertion of Endotracheal Airway into Trachea, Via Natural or Artificial Opening (ICD-10-PCS; 2019-06-18)
PROC: 5A1955Z Respiratory Ventilation, Greater than 96 Consecutive Hours (ICD-10-PCS; 2019-06-18)
PROC: 5A12012 Performance of Cardiac Output, Single, Manual (ICD-10-PCS; 2019-06-18)
PROC: 02HV33Z Insertion of Infusion Device into Superior Vena Cava, Percutaneous Approach (ICD-10-PCS; 2019-06-18)
DX: A41.9 Sepsis, unspecified organism (principal); I21.19 ST elevation (STEMI) myocardial infarction involving other coronary artery of inferior wall; J96.01 Acute respiratory failure with hypoxia; N17.0 Acute kidney failure with tubular necrosis; G93.41 Metabolic encephalopathy; K72.01 Acute and subacute hepatic failure with coma; I50.21 Acute systolic (congestive) heart failure; J98.11 Atelectasis; E87.4 Mixed disorder of acid-base balance; G93.1 Anoxic brain damage, not elsewhere classified; Z66 Do not resuscitate; Z51.5 Encounter for palliative care; I46.9 Cardiac arrest, cause unspecified; I25.2 Old myocardial infarction; I25.5 Ischemic cardiomyopathy; E78.5 Hyperlipidemia, unspecified; E83.39 Other disorders of phosphorus metabolism; E87.6 Hypokalemia; E88.09 Other disorders of plasma-protein metabolism, not elsewhere classified; I11.0 Hypertensive heart disease with heart failure; E83.51 Hypocalcemia; E87.5 Hyperkalemia; R73.9 Hyperglycemia, unspecified; Z90.49 Acquired absence of other specified parts of digestive tract; Z82.49 Family history of ischemic heart disease and other diseases of the circulatory system
CPT/HCPCS: 31500; 36415; 36600; 70450; 71045; 76775; 80048; 80053; 82570; 82805; 82962; 83036; 83605; 83735; 83880; 84100; 84300; 84484; 84550; 85025; 85610; 85730; 87070; 87081; 87205; 92928; 92950; 93306; 93458; 94002; 94003; 94761; 95819; 99152; 99153; 99291; A4618; C1874; C9113; G0378; J1815; J2250